=== PATIENT | female | born 1955 | race Caucasian/White ===

== ENCOUNTER 2019-03-28 08:38 | Day surgery (SDC) | payer OTHER ==
[2019-03-28] VITALS (9 sets, daily range): BP systolic 101–138; BP diastolic 63–87; PULSE 55–64; RESP 16–26; Ht 163.8 cm; Wt 68.6 kg
[~2019-03-28] VITALS: Ht 163.8 cm; Wt 68.6 kg
[~2019-03-28 08:38] MED LIST: ACETAMINOPHEN 325 MG TAB (POST-OP) PO PRN; CALC600T5 PO; CIPROFLOXACIN 0.3% 2.5 ML OPH (PRE-OP) OPER SCH; CYCLOPENTOLATE 1% 2 ML OPH OPER SCH; DICL1ADH6 TP; DICLOFENAC 0.1% 2.5 ML OPH (PRE-OP) OPER SCH; GENTAMICIN 0.3% 5 ML OPH (PRE-OP) OPER SCH; GLUC100015 PO; LEVO25TA6 PO; OMEG-135 PO; OMEP10CA4 PO; PHENYLephrine 2.5% 15 ML OPH (PRE-OP) OPER SCH; TETRACAINE 0.5% 4 ML OPH (PRE-OP) OPER SCH; TROPICAMIDE 1% 15 ML OPH (PRE OP) OPER SCH
[2019-03-28] MEDS ORDERED: TRAM50TA2 ORAL (09:04)
[2019-03-28] MEDS ORDERED: LEVO100T8 ORAL (09:04)
[2019-03-28] MEDS ORDERED: CELE100C82 ORAL (09:04)
[2019-03-28] MEDS ORDERED: HYDR25TA6 ORAL (09:04)
[2019-03-28] MEDS ORDERED: CHOL100062 PO (09:04)
[2019-03-28] MEDS ORDERED: ATOR20TA65 ORAL (09:04)
[2019-03-28] MEDS ORDERED: DICL100G37 TOP (09:04)
[2019-03-28] MEDS ORDERED: DULO60CA59 PO (09:04)
[2019-03-28] MEDS ORDERED: LACTATED RINGER'S 1,000 ML IV SCH (10:30)
--- NOTE | 2019-03-28 11:50 | PREAC ---
Date/Time of Note Date/Time of Note DATE: 03/28/19 TIME: 11:47 Anesthesia Eval and Record Evaluation Time Pre-Procedure Interview DATE: 03/28/19 TIME: 11:47 Age 64 Sex female NPO: 8 hrs Preoperative diagnosis Cataract Planned procedure CE/IOL Past Medical History Past Medical History: Includes Cardio: HTN, Dyslipidemia Endo: Hypothyroid Musculoskeletal: Osteoarthritis GI: Obesity Surgery & Anesthesia Issues No known issue Meds Anticoagulation: No Beta Marino within 24 hr: No Reason Beta Marino not given: Pt. not on B-Marino Reported Medications Celecoxib (Celecoxib) 100 Mg Capsule, 1 CAP ORAL BID 03/28/19 Tramadol HCl (Tramadol HCl) 50 Mg Tablet, 25-50 MG ORAL TID PRN for PAIN LEVEL 1-5 03/28/19 Cholecalciferol* (Vitamin D3*) 1,000 Unit Tablet, 2000 UNIT PO DAILY, TAB 03/28/19 Duloxetine Hcl* (Duloxetine Hcl*) 60 Mg Capsule.dr, 60 MG PO DAILY, #30 CAP 03/28/19 Diclofenac Sodium* (Voltaren* Gel) 1% -100 Gm Gel, 4 GM TOP QID PRN for PAIN LEVEL 1-3, #1 TUB 03/28/19 Atorvastatin Calcium (Atorvastatin Calcium) 20 Mg Tablet, 1 TAB ORAL DAILY 03/28/19 Levothyroxine Sodium* (Levothyroxine Sodium*) 100 Mcg Tablet, 1 TAB ORAL QAM 03/28/19 Hydrochlorothiazide* (Hydrochlorothiazide*) 25 Mg Tab, 1 TAB ORAL DAILY 03/28/19 Discontinued Reported Medications Diclofenac Epolamine (Flector) 30 Ea Adh..patch, 30 EA TP 12/07/14 Calcium Carbonate (CALCIUM) 600 Mg Tablet, 600 MG PO 12/07/14 Glucosamine Sulfate 2KCL (GLUCOSAMINE) 1,000 Mg Tablet, 1000 MG PO 12/07/14 Fish Oil* (Fish Oil*) 1,000 Mg Cap, 1000 MG PO BID, CAP 12/07/14 Levothyroxine Sodium* (Levothyroxine Sodium*) 25 Mcg Tablet, 25 MCG PO AC BREAKFAST, TAB 12/07/14 Omeprazole* (Omeprazole*) 10 Mg Capsule.dr, 10 MG PO DAILY, CAP 12/07/14 Current Medications Tetracaine HCl (Tetracaine 0.5% Steri-Unit Corrina) 1 drop Q5 MIN X3 OPER Last administered on 03/28/19 09:56; Admin Dose 1 DROP; Start 03/28/19 at 08:00 Tropicamide (Mydriacyl 1%) 1 drop Q5 MIN X3 OPER Last administered on 03/28/19 09:57; Admin Dose 1 DROP; Start 03/28/19 at 08:00 Phenylephrine HCl (Ak-Dilate 2.5%) 1 drop Q5 MIN X3 OPER Last administered on 03/28/19 09:57; Admin Dose 1 DROP; Start 03/28/19 at 08:00 Diclofenac Sodium (Voltaren 0.1%) 1 drop Q5 MIN X3 OPER Last administered on 03/28/19 09:56; Admin Dose 1 DROP; Start 03/28/19 at 08:00 Ciprofloxacin HCl (Ciloxan 0.3% Oph) 1 drop Q5 MIN X3 OPER Last administered on 03/28/19 09:56; Admin Dose 1 DROP; Start 03/28/19 at 08:00 Gentamicin Sulfate (Gentamicin 0.3% Oph Drop) 1 drop Q5 MIN X3 OPER ; Start 03/28/19 at 08:00 Acetaminophen (Tylenol Tab) 650 mg Q6H PRN PO PAIN; Start 03/28/19 at 08:00 Cyclopentolate HCl (Ak-Pentolate 1% Oph) 1 drop Q5 MIN X3 OPER Last administered on 03/28/19 09:57; Admin Dose 1 DROP; Start 03/28/19 at 06:00 Lactated Ringer's 1,000 ml @ 20 mls/hr Q24H IV ; Start 03/28/19 at 10:30 Meds reviewed: Yes Allergies Coded Allergies: shrimp (Verified Allergy, Mild, 03/28/19) Morpholine Analogues (Verified Allergy, Unknown, 03/28/19) Allergies Reviewed: Yes Labs/Studies Labs Reviewed: Reviewed by anesthesiologist test: N/A Pre-procedure Exam Last vitals Vital Signs Date Temp Pulse Resp B/P (MAP) Pulse Ox O2 O2 Flow FiO2 Time Delivery Rate 03/28/19 97.2 64 16 138/87 100 Room Air 09:41 (104) Airway: Adequate mouth opening Mallampati: Mallampati II Teeth: Normal Lung: Normal Heart: Normal ASA Physical Status ASA physical status: 3 Emergency: None Planned Anesthetic General/MAC: MAC Pre-operative Attestations Prior to commencing anesthesia and surgery, the patient was re-evaluated, there was verification of: *The patient's identity *The results of appropriate recent lab work and preoperative vital signs *The above evaluation not changing prior to induction *Anesthetic plan, risk benefits, alternative and complications discussed with patient/family; questions answered; patient/family understands, accepts and wishes to proceed. CHRIS ROSENBAUM MD Mar 28, 2019 11:50
[2019-03-28] MEDS ORDERED: MIDAZOLAM 1 MG/ML 2 ML INJ ONE ×2 (11:56→12:18)
--- NOTE | 2019-03-28 11:56 | HPN ---
Date/Time of Note Date/Time of Note DATE: 03/28/19 TIME: 11:55 Interval H&P Admission Note Pt. seen H&P reviewed: No system changes ALFONSO MCKEON MD Mar 28, 2019 11:56
[2019-03-28] MEDS ORDERED: TOBRAMYCIN/DEXAMETH 3.5 GM OPH OINT LEFT EYE ONE (12:44)
[2019-03-28] MEDS ORDERED: LIDOCAINE 4% (MPF) 5 ML INJ INJ ONE (12:44)
[2019-03-28] MEDS ORDERED: NA HYALURONATE/CHONDROITIN 0.5 ML SYG LEFT EYE ONE (12:44)
[2019-03-28] MEDS ORDERED: TETRACAINE 0.5% 4 ML OPH LEFT EYE ONE (12:44)
--- NOTE | 2019-03-28 12:46 | PAC ---
Date/Time of Note Date/Time of Note DATE: 03/28/19 TIME: 12:46 Post-Anesthesia Notes Post-Anesthesia Note Last documented vital signs Vital Signs Date Temp Pulse Resp B/P (MAP) Pulse Ox O2 O2 Flow FiO2 Time Delivery Rate 03/28/19 97.2 64 16 138/87 100 Room Air 09:41 (104) Activity: WNL Respiratory function: WNL Cardiovascular function: WNL Mental status: Baseline Pain reasonably controlled: Yes Hydration appropriate: Yes Nausea/Vomiting absent: Yes CHRIS ROSENBAUM MD Mar 28, 2019 12:46
[2019-03-28] MEDS ORDERED: OXYCODONE/ACETAMINOPHEN (5/325) TAB PO PRN (13:00)
[2019-03-28] MEDS ORDERED: ONDANSETRON 4 MG INJ IV PRN (13:00)
--- NOTE | 2019-03-28 13:04 | OPR ---
Date/Time of Note Date/Time of Note DATE: 03/28/19 TIME: 12:51 Operative Report Procedure Date: Mar 28, 2019 Preoperative Diagnosis Visually Significant Cataract Left Eye Postoperative Diagnosis Visually Significant Cataract Left Eye Operation/Procedure Performed Phacoemulsification with Intra-ocular Lens Implantation Left Eye Surgeon see signature line Air Surveillance Operator Jake Anesthesia Type: MAC Anesthesiologist: CHRIS ROSENBAUM MD Tourniquet Time: none Estimated Blood Loss: none Transfusion none Specimen none Grafts/Implants IMPLANT: Oswaldo Acrysof IOL Model [id number] Power : 24.0 D Complications none Pt Condition Post Procedure: stable Disposition: PACU Indications INDICATIONS FOR SURGERY: Patient has visually significant Cataract in the operative eye affecting the activities of daily living. this has affected patients ability to perform some of the daily tasks such as reading, watching Television, and in some cases driving. The patient has tried a change of glasses, which have failed to provide the satisfactory improvement in vision. Procedure Description OPERATIVE REPORT: The patient was identified and brought to the pre-op area. The operative eye was identified and informed consent was obtained after the patient fully understood the risks, benefits and alternatives of the planned surgery. Three sequential applications of Mydriacyl 1%, Phenylephrine 2.5%, Tetracaine 1% and Ocuflox eyedrops were applied to the operative eye at 5 minute intervals. Patient was brought to the operating room and placed in a supine position. The monitoring equipment was attached and IV sedation was initiated by the Anesthesiologist. The Operative eye was cleaned , prepared and draped in a sterile fashion. The eyelid speculum was placed and microscope was aligned for good visualization. Side port incision of 1.1 mm was made at the limbus using a MVR blade and globe fixator. Preservative free Lidocaine 1% in BSS was injected to enhance the local anesthesia. a dispersive Viscoelastic substance was injected in the anterior chamber. A clear corneal Limbal Temporal incision was performed using a 2.4 mm angled Keratome blade in a biplanar configuration and about 2.5 mm long. Anterior Capsulorrhexis was initiated with a Cystotome and completed with Utrata's scissors to achieve a 5 mm round, continuous and curvilinear opening. Hydrodissection and hydrodelineation was performed to loosen up the nucleus and epinucleus by injecting BSS solution with a Hydrodissection canula. The nucleus was mobilized to rotate freely with a kuglin's hook. The phaco handpiece of the Oswaldo [employer] phaco machine was brought in the field. The nucleus was disassembled by using a modified Stop and Chop technique. Epinucleus was aspirated. Cortical material was aspirated with an I/A handpiece and angled soft tip aspirator. A foldable Intraocular lens of the chosen model was inserted in the folded position into the capsular bag and was allowed to open fully. The lens was rotated to achieve a good central position in the bag. The viscoelastic substance was fully removed using an I/A system. The incisions were sealed by a hydrostatic closure by injecting BSS. The incision was tested for leakage and was found to be sealed. The eyelid speculum was removed. Tobradex eye ointment and Ocuflox eyedrops were instilled in the eye. Eye patch and eye shield were taped in place over closed eye.The patient tolerated the procedure very well without any complications.The patient was transferred to the recovery room in a stable condition for further monitoring. The patient was discharged to go home once the discharge criteria was met with written advice about post operative care and follow up appointment. ALFONSO MCKEON MD Mar 28, 2019 13:02
== END 2019-03-28 14:50 | disposition home or self-care (01) ==
LOC: SDS 08:38
PROVIDERS: ATTEND Ophthalmology
DX: H26.8 Other specified cataract (principal); I10 Essential (primary) hypertension; E78.5 Hyperlipidemia, unspecified; E03.9 Hypothyroidism, unspecified
CPT/HCPCS: 66984; 71045; J2250; V2632; Z7512; Z7610